=== PATIENT | male | born 1965 | race Caucasian/White ===

== ENCOUNTER → 2016-11-01 | Outpatient (CLI) | payer OTHER | LOC: FIMAGING 06:51 | PROVIDERS: ATTEND Internal Medicine Endocrinology, Diabetes & Metabolism | DX: E04.2 Nontoxic multinodular goiter (principal) ==

== ENCOUNTER → 2017-11-12 | Outpatient (CLI) | payer OTHER | LOC: FIMAGING 11:31 | PROVIDERS: ATTEND Internal Medicine Endocrinology, Diabetes & Metabolism | DX: E04.1 Nontoxic single thyroid nodule (principal) ==

== ENCOUNTER → 2018-03-23 | Outpatient (CLI) | payer OTHER | LOC: BMCLAB 12:05 | PROVIDERS: ATTEND Family Medicine | DX: M79.89 Other specified soft tissue disorders (principal); M77.31 Calcaneal spur, right foot ==